=== PATIENT | female | born 1975 ===

== ENCOUNTER 2021-05-08 22:53 | Inpatient (IN) | payer SELFPAY ==
[2021-05-08 23:34] LABS: Bacteria,Urine 2+ /HPF (Negative); Bilirubin,Urine NEG (Negative); Blood,Urine MOD (Negative); Color,Urine Yellow (Yellow); Mucus,Urine FEW /HPF; Protein,Urine <15 mg/dL mg/dL (Negative); Urobilinogen,Urine < 2.0 mg/dL (<2.0)
[2021-05-08] MEDS ORDERED: FAMOTIDINE 20 MG/2 ML INJ IV ONE (23:48)
[2021-05-08] MEDS ORDERED: ONDANSETRON 4 MG/2 ML INJ IV ONE (23:48)
[2021-05-08] MEDS ORDERED: MORPHINE 4 MG/1 ML INJ IV ONE (23:48)
[2021-05-08 23:51] LABS: Basophils % (Auto) 0.2 % (0.0-1.8); Eosinophils % (Auto) 0.4 % (0.0-4.3); Hematocrit 38.4 % (30.3-42.9); Hemoglobin 12.4 gm/dl (10.1-14.3); Lymphocytes # (Auto) 0.9 K/mm3 (1.2-5.4); Lymphocytes % (Auto) 8.9 % (13.4-35.0); Mean Corpuscular HGB Conc 32 % (30-34); Mean Corpuscular Volume 85 fl (79-97); Monocytes # (Auto) 0.4 K/mm3 (0.0-0.8); Monocytes % (Auto) 4.1 % (0.0-7.3); Platelet Count 301 K/mm3 (140-440); Red Blood Count 4.51 M/mm3 (3.65-5.03); Red Cell Distribution Width 14.2 % (13.2-15.2)
[2021-05-09 00:10] LABS: Alanine Aminotransferase 16 units/L (7-56); Albumin 4.8 g/dL (3.9-5); Blood Urea Nitrogen 19 mg/dL (7-17); Calcium 9.5 mg/dL (8.4-10.2); Hemolysis Index 3
[2021-05-09 00:13] LABS: BUN/Creatinine Ratio 32
[2021-05-09] MEDS ORDERED: SODIUM CHLORIDE 0.9% 1000 ML 1,000 ML IV ONE (01:07)
[2021-05-09] MEDS ORDERED: HYDROmorphone 1 MG/1 ML INJ IV ONE (02:20)
[2021-05-09] MEDS ORDERED: PROCHLORPERAZINE EDISYLATE 10 MG/2 ML VIAL IV ONE (02:20)
--- NOTE | 2021-05-09 02:37 | Emergency Department Report ---
ED Abdominal Pain HPI - General Chief Complaint: Abdominal Pain Stated Complaint: ABD PAIN / VOMITING Source: patient, family Mode of arrival: Ambulatory Limitations: No Limitations - History of Present Illness Initial Comments: Per family, patient is a 46-year-old female with no past medical history presents to the ED with complaint of acute onset persistent diffuse a bdominal pain with intractable nausea and vomiting for the last 8 hours. Patient states that she has not been able to keep anything down especially in the last 6 hours. Patient states that the pain is constant and persistent and sharp, waxing and waning. Patient denies dizziness, syncope, fever, chills, cough, chest pain, shortness of breath, diarrhea, dysuria, urinary frequency and urgency, vaginal bleeding, vaginal discharge, flank pain or hematuria. MD Complaint: abdominal pain, other (Nausea and vomiting) -: Sudden, hour(s) (8) Location: diffuse, periumbilical, LLQ Radiation: none Migration to: no migration Severity: severe Severity scale (0 -10): 10 Quality: cramping, aching, sharp Consistency: constant Improves With: nothing Worsens With: vomiting Associated Symptoms: denies other symptoms, nausea, vomiting, anorexia. denies: diarrhea, fever, chills, constipation, dysuria, hematemesis, hematochezia, melena, hematuria, syncope - Related Data Allergies Allergy/AdvReac Type Severity Reaction Status Date / Time No Known Allergies Allergy Verified 05/08/21 23:01 ED Review of Systems ROS: Stated complaint: ABD PAIN / VOMITING Other details as noted in HPI Constitutional: denies: chills, fever Eyes: denies: eye pain, eye discharge, vision change ENT: denies: ear pain, throat pain Respiratory: denies: cough, shortness of breath, wheezing Cardiovascular: denies: chest pain, palpitations Endocrine: no symptoms reported Gastrointestinal: abdominal pain, nausea, vomiting. denies: diarrhea Genitourinary: denies: urgency, dysuria, discharge Musculoskeletal: denies: back pain, joint swelling, arthralgia Skin: denies: rash, lesions Neurological: denies: headache, weakness, paresthesias Psychiatric: denies: anxiety, depression Hematological/Lymphatic: denies: easy bleeding, easy bruising ED Physical Exam - General Limitations: No Limitations General appearance: alert, in no apparent distress - Head Head exam: Present: atraumatic, normocephalic, normal inspection - Eye Eye exam: Present: normal appearance, PERRL, EOMI Pupils: Present: normal accommodation - ENT ENT exam: Present: normal exam, normal orophraynx, mucous membranes moist, TM's normal bilaterally, normal external ear exam - Neck Neck exam: Present: normal inspection, full ROM. Absent: tenderness - Respiratory Respiratory exam: Present: normal lung sounds bilaterally. Absent: respiratory distress, wheezes, rhonchi, chest wall tenderness, accessory muscle use, decreased breath sounds - Cardiovascular Cardiovascular Exam: Present: regular rate, normal rhythm, normal heart sounds. Absent: systolic murmur, diastolic murmur, rubs, gallop - GI/Abdominal GI/Abdominal exam: Present: soft, tenderness (Palpable diffuse abdominal tenderness), normal bowel sounds. Absent: guarding, rebound, hyperactive bowel sounds, organomegaly, mass - Extremities Exam Extremities exam: Present: normal inspection, full ROM, normal capillary refill - Back Exam Back exam: Present: normal inspection, full ROM. Absent: tenderness, CVA t enderness (R), CVA tenderness (L), muscle spasm, paraspinal tenderness, vertebral tenderness - Neurological Exam Neurological exam: Present: alert, oriented X3, CN II-XII intact, normal gait, reflexes normal - Psychiatric Psychiatric exam: Present: normal affect, normal mood - Skin Skin exam: Present: warm, dry, intact, normal color. Absent: rash ED Course Vital Signs 05/08/21 22:57 Temperature 98.8 F Pulse Rate 96 H Respiratory 20 Rate Blood Pressure 130/95 O2 Sat by Pulse 99 Oximetry - Reevaluation(s) Reevaluation #1: 05/09/21 03:51 I paged and discussed patient case with the general surgeon on-call Dr. Alfred who advised an NG tube be inserted into the patient's nose for suctioning and that the hospitalist physician on-call admit the patient and she shall be a c onsult on the patient. I therefore paged Dr. Calero the hospitalist physician who admitted the patient to the hospital. ED Medical Decision Making - Lab Data Result diagrams: 05/08/21 23:12 05/08/21 23:12 - Radiology Data Radiology results: report reviewed, image reviewed [facility] [address] [place] [address] Cat Scan Report Signed Patient: EULALIA CASTRO MR# : [id number] : 1975 Acct:[id number] Age/Sex: 46 / F ADM Date: 05/08/21 Loc: ED Attending Dr: Ordering Physician: NEVILLE PEPPER Date of Service: 05/08/21 Procedure(s): CT abdomen pelvis w con Accession Number(s): [id number] cc: NEVILLE PEPPER CT ABDOMEN AND PELVIS WITH CONTRAST INDICATION / CLINICAL INFORMATION: Pt complains of epigastric abdominal pain with vomiting. TECHNIQUE: Axial CT images were obtained through the abdomen and pelvis after 100 cc Omnipaque [address] scans at this location are performed using CT dose reduction for ALARA by means of automated exposure control. COMPARISON: None available. FINDINGS: LOWER CHEST: No significant abnormality of the imaged chest. LIVER: No significant abnormality. GALLBLADDER: No significant abnormality. BILE DUCTS: No significant abnormality. SPLEEN: No significant abnormality. PANCREAS: No significant abnormality. ADRENALS: No significant abnormality. RIGHT KIDNEY / URETER: No significant abnormality. LEFT KIDNEY / URETER: No significant abnormality. STOMACH / DUODENUM / SMALL BOWEL: Small bowel distention is demonstrated to the level of the mid to distal ileum. Small collections of interloop fluid present. Bowel wall enhancement remains uniform. A transition point within the right lower abdomen is demonstrated image #1:30; series #2. No distinct obstructing lesion focal abnormality of the bowel lumen can be identified. COLON: Diverticulosis without acute inflammation. APPENDIX: No significant abnormality. PERITONEUM: Trace amount of free fluid is present within the dependent pelvis. LYMPH NODES: No significant adenopathy. AORTA / ARTERIES: No significant abnormality. IVC / VEINS: No significant abnormality. URINARY BLADDER: No significant abnormality. REPRODUCTIVE ORGANS: No significant abnormality. ADDITIONAL ABDOMINAL/PELVIC FINDINGS: None. SKELETAL SYSTEM: No significant abnormality. IMPRESSION: 1. Findings compatible small bowel obstruction transition point right lower abdomen as detailed. 2. Colonic diverticulosis without evidence of acute diverticulitis. Signer Name: Radha Gibson II, MD Signed: 05/09/2021 3:01 AM Workstation Name: [id number] Transcribed By: HOLLY Dictated By: RADHA GIBSON II, MD Electronically Authenticated By: RADHA GIBSON II, MD Signed Date/Time: 05/09/21300 DD/ 0258 TD/TT: - Medical Decision Making This is a 46-year-old female with no past medical history presents to the ED with complaint of acute onset persistent diffuse abdominal pain with intractable nausea and vomiting for the last 8 hours. Patient states that she has not been able to keep anything down especially in the last 6 hours. Patient states that the pain is constant and persistent and sharp, waxing and waning. In the ED, patient is alert and oriented x3 and is not in any distress but appears to be in significant pain, crying during the physical exam. Patient is also having persistent intermittent nausea and vomiting during the physical exam. Patient was treated for pain in the ED and was given antiemetics, normal saline 1 L IV bolus x1 and antacids. Lab test results were reviewed and are all nonactionable. The abdomen pelvis CT scan with contrast showed findings compatible small bowel obstruction transition point right lower abdomen as detailed. It also showed colonic diverticulosis without evidence of acute diverticulitis. Patient case was discussed with the general surgeon on-call Dr. Alfred who advised that the patient be admitted to the hospital by the hospitalist physician on-call and she shall consult on the patient upon admission. She also advised that an NG tube be placed on the patient to help decompress the abdomen. I therefore paged and discussed the patient case with the hospitalist physician on-call Dr. Calero who admitted the patient to the hospital. - Differential Diagnosis Appendicitis; SBO; diverticulitis; cholecystitis; pyelonephritis; UTI Critical care attestation.: If time is entered above; I have spent that time in minutes in the direct care of this critically ill patient, excluding procedure time. ED Disposition Clinical Impression: Abdominal pain in female patient, Nausea and vomiting in adult patient, Small bowel obstruction Disposition: 02 [facility]ORT TERM [facility]OS[facility] Is pt being admited?: No Does the pt Need Aspirin: No Condition: Stable Instructions: Nausea and Vomiting, Adult, [id number], Abdominal Pain, Adult, [id number], Abdominal Pain (ED), Bowel Obstruction, [id number] Referrals: PRIMARY CARE, [Primary Care Provider] - 3-5 Days Time of Disposition: 03:54 Print Language: NIGERIEN
--- NOTE | 2021-05-09 03:06 | Cat Scan Report ---
CT ABDOMEN AND PELVIS WITH CONTRAST INDICATION / CLINICAL INFORMATION: Pt complains of epigastric abdominal pain with vomiting. TECHNIQUE: Axial CT images were obtained through the abdomen and pelvis after 100 cc Omnipaque [address] scans at this location are performed using CT dose reduction for ALARA by means of automated exposure control. COMPARISON: None available. FINDINGS: LOWER CHEST: No significant abnormality of the imaged chest. LIVER: No significant abnormality. GALLBLADDER: No significant abnormality. BILE DUCTS: No significant abnormality. SPLEEN: No significant abnormality. PANCREAS: No significant abnormality. ADRENALS: No significant abnormality. RIGHT KIDNEY / URETER: No significant abnormality. LEFT KIDNEY / URETER: No significant abnormality. STOMACH / DUODENUM / SMALL BOWEL: Small bowel distention is demonstrated to the level of the mid to d istal ileum. Small collections of interloop fluid present. Bowel wall enhancement remains uniform. A transition point within the right lower abdomen is demonstrated image #1:30; series #2. No distinct o bstructing lesion focal abnormality of the bowel lumen can be identified. COLON: Diverticulosis without acute inflammation. APPENDIX: No significant abnormality. PERITONEUM: Trace amount of free fluid is present within the dependent pelvis. LYMPH NODES: No significant adenopathy. AORTA / ARTERIES: No significant abnormality. IVC / VEINS: No significant abnormality. URINARY BLADDER: No significant abnormality. REPRODUCTIVE ORGANS: No significant abnormality. ADDITIONAL ABDOMINAL/PELVIC FINDINGS: None. SKELETAL SYSTEM: No significant abnormality. IMPRESSION: 1. Findings compatible small bowel obstruction transition point right lower abdomen as detailed. 2. Colonic diverticulosis without evidence of acute diverticulitis. Signer Name: Lincoln Hubbard II, MD Signed: 05/09/2021 3:01 AM Workstation Name: [id number]
[2021-05-09] MEDS ORDERED: ONDANSETRON 4 MG/2 ML INJ IV PRN (03:56)
[2021-05-09] MEDS ORDERED: ACETAMINOPHEN 325 MG TAB PO PRN ×2 (03:56→04:58)
[2021-05-09] MEDS ORDERED: ALBUTEROL 2.5 MG/3 ML NEBU IH PRN (04:58)
[2021-05-09] MEDS ORDERED: HYDROmorphone 1 MG/1 ML INJ IV PRN ×2 (04:58→11:38)
--- NOTE | 2021-05-09 05:04 | History and Physical Report ---
History of Present Illness Date of examination: 05/09/21 Date of admission: 05/09/21 Chief complaint: Abdominal pain Nausea vomiting History of present illness: 46-year-old female with no past medical history presents to the ED with complaint of acute onset persistent diffuse abdominal pain with intractable nausea and vomiting for the last 8 hours. Patient states that she has not been able to keep anything down especially in the last 6 hours. Patient states that the pain is constant and persistent and sharp, waxing and waning. Patient denies dizziness, syncope, fever, chills, cough, chest pain, shortness of breath, diarrhea, dysuria, urinary frequency . In the emergency room CT scan of the abdomen shows small bowel obstruction transition point right lower abdomen as detailed. Colonic diverticulosis without evidence of acute diverticulitis. Subsequently Case was discussed with surgery's were going to admit the patient and put the patient on NG suction IV fluid surgery will see the patient in consultation Past History Past Surgical History: No surgical history Social history: no significant social history Family history: no significant family history Medications and Allergies Allergies Allergy/AdvReac Type Severity Reaction Status Date / Time No Known Allergies Allergy Verified 05/08/21 23:01 Active Meds: Active Medications Acetaminophen (Acetaminophen 325 Mg Tab) 650 mg PO Q4H PRN PRN Reason: Pain MILD(1-3)/Fever >100.5/DILLON Ondansetron HCl (Ondansetron 4 Mg/2 Ml Inj) 4 mg IV Q8H PRN PRN Reason: Nausea And Vomiting Sodium Chloride (Sodium Chloride 0.9% 10 Ml Flush Syringe) 10 ml IV BID ANNEMARIE Sodium Chloride (Sodium Chloride 0.9% 10 Ml Flush Syringe) 10 ml IV PRN PRN PRN Reason: LINE FLUSH Review of Systems All systems: negative Gastrointestinal: abdominal pain, nausea, vomiting Exam - Constitutional Vitals: Temp Pulse Resp BP Pulse Ox 98.8 F 96 H 20 130/95 99 05/08/21 22:57 05/08/21 22:57 05/08/21 22:57 05/08/21 22:57 05/08/21 22:57 General appearance: Present: no acute distress, well-nourished - EENT Eyes: Present: PERRL ENT: hearing intact, clear oral mucosa - Neck Neck: Present: supple, normal ROM - Respiratory Respiratory effort: normal Respiratory: bilateral: CTA - Cardiovascular Heart Sounds: Present: S1 & S2. Absent: rub, click - Extremities Extremities: pulses symmetrical, No edema Peripheral Pulses: within normal limits - Abdominal General gastrointestinal: Present: soft, non-tender, non-distended, normal bowel sounds Female genitourinary: Present: normal - Integumentary Integumentary: Present: clear, warm, dry - Musculoskeletal Musculoskeletal: gait normal, strength equal bilaterally - Psychiatric Psychiatric: appropriate mood/affect, intact judgment & insight - Neurologic Neurologic: CNII-XII intact, moves all extremities Results - Labs CBC & Chem 7: 05/08/21 23:12 05/08/21 23:12 Labs: Laboratory Last Values WBC 10.4 K/mm3 (4.5-11.0) 05/08/21 23:12 RBC 4.51 M/mm3 (3.65-5.03) 05/08/21 23:12 Hgb 12.4 gm/dl (10.1-14.3) 05/08/21 23:12 Hct 38.4 % (30.3-42.9) 05/08/21 23:12 MCV 85 fl (79-97) 05/08/21 23:12 MCH 28 pg (28-32) 05/08/21 23:12 MCHC 32 % (30-34) 05/08/21 23:12 RDW 14.2 % (13.2-15.2) 05/08/21 23:12 Plt Count 301 K/mm3 (140-440) 05/08/21 23:12 Lymph % (Auto) 8.9 % (13.4-35.0) L 05/08/21 23:12 Cass % (Auto) 4.1 % (0.0-7.3) 05/08/21 23:12 Eos % (Auto) 0.4 % (0.0-4.3) 05/08/21 23:12 Baso % (Auto) 0.2 % (0.0-1.8) 05/08/21 23:12 Lymph # (Auto) 0.9 K/mm3 (1.2-5.4) L 05/08/21 23:12 Cass # (Auto) 0.4 K/mm3 (0.0-0.8) 05/08/21 23:12 Eos # (Auto) 0.0 K/mm3 (0.0-0.4) 05/08/21 23:12 Baso # (Auto) 0.0 K/mm3 (0.0-0.1) 05/08/21 23:12 Seg Neutrophils % 86.4 % (40.0-70.0) H 05/08/21 23:12 Seg Neutrophils # 9.0 K/mm3 (1.8-7.7) H 05/08/21 23:12 Sodium 141 mmol/L (137-145) 05/08/21 23:12 Potassium 4.3 mmol/L (3.6-5.0) 05/08/21 23:12 Chloride 102.5 mmol/L (98-107) 05/08/21 23:12 Carbon Dioxide 24 mmol/L (22-30) 05/08/21 23:12 Anion Gap 19 mmol/L 05/08/21 23:12 BUN 19 mg/dL (7-17) H 05/08/21 23:12 Creatinine 0.6 mg/dL (0.6-1.2) 05/08/21 23:12 Estimated GFR > 60 ml/min 05/08/21 23:12 BUN/Creatinine Ratio 32 % 05/08/21 23:12 Glucose 134 mg/dL (65-100) H 05/08/21 23:12 Lactic Acid 1.00 mmol/L (0.7-2.0) 05/09/21 04:17 Calcium 9.5 mg/dL (8.4-10.2) 05/08/21 23:12 Total Bilirubin 0.30 mg/dL (0.1-1.2) 05/08/21 23:12 AST 17 units/L (5-40) 05/08/21 23:12 ALT 16 units/L (7-56) 05/08/21 23:12 Alkaline Phosphatase 147 units/L (35-129) H 05/08/21 23:12 Total Protein 7.9 g/dL (6.3-8.2) 05/08/21 23:12 Albumin 4.8 g/dL (3.9-5) 05/08/21 23:12 Albumin/Globulin Ratio 1.5 % 05/08/21 23:12 Lipase 18 units/L (13-60) 05/09/21 00:07 HCG, Qual Negative (Negative) 05/09/21 00:07 Urine Color Yellow (Yellow) 05/08/21 Unknown Urine Turbidity Clear (Clear) 05/08/21 Unknown Urine pH 5.0 (5.0-7.0) 05/08/21 Unknown Ur Specific [place] 1.010 (1.003-1.030) 05/08/21 Unknown Urine Protein <15 mg/dl mg/dL (Negative) 05/08/21 Unknown Urine Glucose (UA) Neg mg/dL (Negative) 05/08/21 Unknown Urine Ketones Neg mg/dL (Negative) 05/08/21 Unknown Urine Blood Mod (Negative) 05/08/21 Unknown Urine Nitrite Neg (Negative) 05/08/21 Unknown Urine Bilirubin Neg (Negative) 05/08/21 Unknown Urine Urobilinogen < 2.0 mg/dL (<2.0) 05/08/21 Unknown Ur Leukocyte Esterase Tr (Negative) 05/08/21 Unknown Urine WBC (Auto) 2.0 /HPF (0.0-6.0) 05/08/21 Unknown Urine RBC (Auto) 4.0 /HPF (0.0-6.0) 05/08/21 Unknown U Epithel Cells (Auto) 3.0 /HPF (0-13.0) 05/08/21 Unknown Urine Bacteria (Auto) 2+ /HPF (Negative) 05/08/21 Unknown Urine Mucus Few /HPF 05/08/21 Unknown - Imaging and Cardiology CT scan - abdomen: report reviewed Assessment and Plan VTE prophylaxis?: Chemical Plan of care discussed with patient/family: Yes - Patient Problems (1) Small bowel obstruction Current Visit: Yes Status: Acute Plan to address problem: Admit the patient to the medical floor. N.p.o. NG suction. D5 half-normal saline at the rate of 100 cc/h. Pepcid 20 mg IV every 12 hours. Zofran 4 mg IV every 6 hours as needed. Surgery evaluation (2) Abdominal pain in female patient Current Visit: Yes Status: Acute Plan to address problem: Morphine 2 mg IV every 4 hours as needed, Pepcid 20 mg IV every 12 hours. Zofran 4 mg every 6 hours as needed (3) Nausea and vomiting in adult patient Current Visit: Yes Status: Acute Plan to address problem: N.p.o. NG suction. D5 half-normal saline at the rate of 100 cc/h. Pepcid 20 mg IV every 12 hours. Zofran 4 mg IV every 6 hours as needed. Surgery evaluation (4) DVT prophylaxis Current Visit: Yes Status: Acute Plan to address problem: Heparin 5000 units subcu every 12 hours for DVT prophylaxis. Pepcid 20 mg IV every 12 hours for GI prophylaxis. Patient is a full code
[2021-05-09] MEDS ORDERED: IPRATROPIUM/ALBUTEROL SULFATE 3 ML AMPUL.NEB IH SCH (08:00)
[2021-05-09] MEDS: MORPHINE 2 MG/1 ML INJ IV PRN (08:04)
--- NOTE | 2021-05-09 09:55 | Consultation ---
History of Present Illness Consult date: 05/09/21 Reason for consult: abdominal pain - History of present illness History of present illness: General surgery consulted on a 46-year-old female who presented to the hospital with a 1 day history of acute abdominal pain. Patient was well prior to the pain starting. Pain is most severe in the central abdomen and it waxes and wanes. Patient has some nausea and vomiting, with last flatus and bowel movement yesterday. Patient is CT scan abdomen and pelvis that showed dilated bowel loops consistent with small bowel obstruction. Past History Past Medical History: No medical history Past Surgical History: No surgical history Social history: no significant social history Family history: no significant family history Medications and Allergies Allergies Allergy/AdvReac Type Severity Reaction Status Date / Time No Known Allergies Allergy Verified 05/08/21 23:01 Active Meds: Active Medications Acetaminophen (Acetaminophen 325 Mg Tab) 650 mg PO Q4H PRN PRN Reason: Pain MILD(1-3)/Fever >100.5/DILLON Albuterol (Albuterol 2.5 Mg/3 Ml Nebu) 2.5 mg IH Q3HRT PRN PRN Reason: Shortness Of Breath Albuterol/Ipratropium (Ipratropium/Albuterol Sulfate 3 Ml Ampul.Neb) 1 ampul IH BIDRT ANNEMARIE Famotidine (Famotidine 20 Mg/2 Ml Inj) 20 mg IV BID ANNEMARIE Heparin Sodium (Porcine) (Heparin 5,000 Unit/1 Ml Vial) 5,000 unit SUB-Q Q12HR ANNEMARIE Hydromorphone HCl (Hydromorphone 1 Mg/1 Ml Inj) 0.5 mg IV Q3H PRN PRN Reason: Pain , Severe (7-10) Dextrose/Sodium Chloride (D5/0.45ns) 1,000 mls @ 100 mls/hr IV DIRECT ANNEMARIE Morphine Sulfate (Morphine 2 Mg/1 Ml Inj) 2 mg IV Q4H PRN PRN Reason: Pain, Moderate (4-6) Last Admin: 05/09/21 08:04 Dose: 2 mg Ondansetron HCl (Ondansetron 4 Mg/2 Ml Inj) 4 mg IV Q8H PRN PRN Reason: Nausea And Vomiting Last Admin: 05/09/21 09:46 Dose: 4 mg Ondansetron HCl (Ondansetron 4 Mg/2 Ml Inj) 4 mg IV Q8H PRN PRN Reason: Nausea And Vomiting Sodium Chloride (Sodium Chloride 0.9% 10 Ml Flush Syringe) 10 ml IV BID ANNEMARIE Last Admin: 05/09/21 09:25 Dose: 10 ml Sodium Chloride (Sodium Chloride 0.9% 10 Ml Flush Syringe) 10 ml IV PRN PRN PRN Reason: LINE FLUSH Review of Systems All systems: negative - Gastrointestinal abdominal pain, nausea, vomiting Exam Vital Signs Temp Pulse Resp BP Pulse Ox 98.8 F 96 H 20 130/95 99 05/08/21 22:57 05/08/21 22:57 05/08/21 22:57 05/08/21 22:57 05/08/21 22:57 - General physical appearance Positive: well developed, no distress, moderate pain - Eyes Positive: PERRL. Negative: icteric - ENT Positive: no hearing loss - Respiratory Positive: normal expansion, normal respiratory effort - Cardiovascular Heart Sounds: Present: S1 & S2 - Extremities Extremities: no ischemia - Abdomen Abdomen: Present: soft, distended, other (tender to deep palpation). Absent: rebound, guarding Hernia: none - Neurologic Neurologic: alert and oriented to time, place and person - Psychiatric Psychiatric: appropriate mood/affect Results - Labs 05/08/21 23:12 05/08/21 23:12 Abnormal lab results 05/08/21 05/08/21 Range/Units 23:12 23:12 Lymph % (Auto) 8.9 L (13.4-35.0) % Lymph # (Auto) 0.9 L (1.2-5.4) K/mm3 Seg Neutrophils % 86.4 H (40.0-70.0) % Seg Neutrophils # 9.0 H (1.8-7.7) K/mm3 BUN 19 H (7-17) mg/dL Glucose 134 H (65-100) mg/dL Alkaline Phosphatase 147 H (35-129) units/L Diabetes panel 05/08/21 Range/Units 23:12 Sodium 141 (137-145) mmol/L Potassium 4.3 (3.6-5.0) mmol/L Chloride 102.5 (98-107) mmol/L Carbon Dioxide 24 (22-30) mmol/L BUN 19 H (7-17) mg/dL Creatinine 0.6 (0.6-1.2) mg/dL Glucose 134 H (65-100) mg/dL Calcium 9.5 (8.4-10.2) mg/dL AST 17 (5-40) units/L ALT 16 (7-56) units/L Alkaline Phosphatase 147 H (35-129) units/L Total Protein 7.9 (6.3-8.2) g/dL Albumin 4.8 (3.9-5) g/dL Calcium panel 05/08/21 Range/Units 23:12 Calcium 9.5 (8.4-10.2) mg/dL Albumin 4.8 (3.9-5) g/dL Pituitary panel 05/08/21 Range/Units 23:12 Sodium 141 (137-145) mmol/L Potassium 4.3 (3.6-5.0) mmol/L Chloride 102.5 (98-107) mmol/L Carbon Dioxide 24 (22-30) mmol/L BUN 19 H (7-17) mg/dL Creatinine 0.6 (0.6-1.2) mg/dL Glucose 134 H (65-100) mg/dL Calcium 9.5 (8.4-10.2) mg/dL Adrenal panel 05/08/21 Range/Units 23:12 Sodium 141 (137-145) mmol/L Potassium 4.3 (3.6-5.0) mmol/L Chloride 102.5 (98-107) mmol/L Carbon Dioxide 24 (22-30) mmol/L BUN 19 H (7-17) mg/dL Creatinine 0.6 (0.6-1.2) mg/dL Glucose 134 H (65-100) mg/dL Calcium 9.5 (8.4-10.2) mg/dL Total Bilirubin 0.30 (0.1-1.2) mg/dL AST 17 (5-40) units/L ALT 16 (7-56) units/L Alkaline Phosphatase 147 H (35-129) units/L Total Protein 7.9 (6.3-8.2) g/dL Albumin 4.8 (3.9-5) g/dL - Imaging CT scan - abdomen: report reviewed, image reviewed CT scan - pelvis: report reviewed, image reviewed Assessment and Plan 46-year-old female with small bowel obstruction of unknown clear etiology. Patient has no known past surgical history, and there are no clinical hernias or masses seen on her CT scan. Patient was evaluated with the help of child health associate. Patient signed informed consent and expressed understanding for diagnostic laparoscopy. Patient did have NG tube decompression and will schedule patient for later today.
--- NOTE | 2021-05-09 10:05 | XRay Report ---
ABDOMEN 1 VIEW(S) INDICATION / CLINICAL INFORMATION: NG tube placement. COMPARISON: None available. FINDINGS: TUBES / LINES: The distal tip and sidehole of the nasogastric tube terminates in the fundus of the st omach. BOWEL GAS PATTERN: Slightly prominent loops of small bowel in the upper abdomen are noted. FREE AIR / EXTRALUMINAL GAS: None seen. ADDITIONAL FINDINGS: No significant additional findings. IMPRESSION: The nasogastric tube terminates in the fundus of the stomach. Signer Name: Chencho Martin Jr, MD Signed: 05/09/2021 10:00 AM Workstation Name: [id number]
[2021-05-09] MEDS: HEPARIN 5,000 UNIT/1 ML VIAL SUB-Q SCH ×2 (10:25→21:47)
[2021-05-09] MEDS ORDERED: ceFAZolin/STERILE WATER 2 GM/20 ML SYRINGE IV NR (11:04)
[2021-05-09] MEDS ORDERED: metroNIDAZOLE/NS 500 MG/100 ML 500 MG/100 ML BAG IV NR (11:04)
--- NOTE | 2021-05-09 11:20 | Event Note ---
Date: 05/09/21 Patient seen and examined today. NG tube in place. Patient had episode of vomiting with NG tube. Chest x-ray reviewed and NG tube placed to suction. Patient evaluated by surgery, plans for exploratory laparoscopy later today.
[2021-05-09] MEDS: LACTATED RINGERS 1,000 ML IV SCH ×2 (11:35→18:28)
[2021-05-09] MEDS: FAMOTIDINE 20 MG/2 ML INJ IV SCH ×2 (11:45→21:46)
--- NOTE | 2021-05-09 11:49 | Anesthesia Consultation ---
Anesthesia Consult and Med Hx Date of service: 05/09/21 - Airway Anesthetic Teeth Evaluation: Good ROM Head & Neck: Adequate Mental/Hyoid Distance: Adequate Mallampati Class: Class III Intubation Access Assessment: Possibly Difficult - Pre-Operative Health Status ASA Pre-Surgery Classification: ASA2 Proposed Anesthetic Plan: General - Pulmonary Hx Smoking: No Hx Respiratory Symptoms: No - Cardiovascular System Hx Hypertension: No Hx Heart Attack/AMI: No - Central Nervous System CVA: No - Endocrine Hx Renal Disease: No Hx Liver Disease: No Hx Insulin Dependent Diabetes: No Hx Non-Insulin Dependent Diabetes: No Hx Thyroid Disease: No - Additional Comments Anesthesia Medical History Comments: No prior GA. Presented with abdominal pain, nausea, vomiting and found to have SBO. NGT currently in place. Patient is [employer]'s Witness and therefore refuses blood products.
--- NOTE | 2021-05-09 11:49 | Anesthesia Day of Surgery ---
Anesthesia Day of Surgery - Day of Surgery Patient Examined: Yes Patient H&P Reviewed: Yes Patient is NPO: Yes
[2021-05-09] MEDS ORDERED: HYDROmorphone 1 MG/1 ML INJ ONE (12:00)
[2021-05-09] MEDS ORDERED: SCOPOLAMINE TRANSDERMAL PATCH 72 HR TD NR (12:00)
[2021-05-09] MEDS ORDERED: LIDOCAINE MPF (2%) 20 MG/1 ML VIAL 5 ML ONE ×2 (12:00→14:25)
[2021-05-09] MEDS ORDERED: propofoL 200 MG/20 ML VIAL IV ONE (12:00)
[2021-05-09] MEDS ORDERED: MIDAZOLAM 2 MG/2 ML INJ IV NR (12:00)
[2021-05-09] MEDS ORDERED: ROCURONIUM 50 MG/5 ML INJ IV ONE ×2 (12:00→14:25)
[2021-05-09] MEDS ORDERED: SUCCINYLCHOLINE CHLORIDE 200 MG/10 ML INJ MDV ONE (12:01)
[2021-05-09] MEDS ORDERED: LIDOCAINE (1%) 10 MG/1 ML VIAL 20 ML MDV ONE (12:41)
[2021-05-09] MEDS ORDERED: BUPIVACAINE/PF (0.25%) 2.5 MG/ML 30 ML VIAL INFILTRATI ONE ×2 (12:41→13:30)
[2021-05-09] MEDS ORDERED: LIDOCAINE (1%) 10 MG/1 ML VIAL 20 ML MDV INFILTRATI ONE (13:30)
[2021-05-09] MEDS ORDERED: SODIUM CHLORIDE 0.9% IRRIG SOLN 2000 ML IR ONE (13:30)
[2021-05-09] MEDS ORDERED: SODIUM CHLORIDE 0.9% IRR 1,500 ML BOTTLE IR ONE (13:30)
[2021-05-09] MEDS ORDERED: dexAMETHasone 20 MG/5 ML VIAL ONE (14:21)
[2021-05-09] MEDS ORDERED: ONDANSETRON 4 MG/2 ML INJ ONE (14:22)
[2021-05-09] MEDS ORDERED: NEOSTIGMINE 10MG/10 ML INJ MDV ONE (15:16)
[2021-05-09] MEDS ORDERED: GLYCOPYRROLATE 0.4 MG/2 ML INJ ONE (15:16)
[2021-05-09] MEDS ORDERED: KETOROLAC 30 MG/1 ML INJ ONE (15:19)
[2021-05-09] MEDS ORDERED: LACTATED RINGERS 1,000 ML ONE (15:33)
--- NOTE | 2021-05-09 15:53 | Operative Report ---
Operative Report Operative Report: Date: May 09, 2021 Surgeon: Mark Alfred MD Tongue And Groove Machine Operator surgeon: Jagdish Reis CSA MD Procedure:1. Diagnostic laparoscopy, 2. Segmental small bowel resection with primary anastomosis Preop diagnosis: Small bowel obstruction Postop diagnosis: Small bowel obstruction Anesthesia:GETA Indication: Patient is a 46-year-old female who presented to the emergency room with a 1 day history of crampy abdominal pain with nausea and vomiting. Patient had a CT scan which showed a small bowel obstruction with no previous history of abdominal surgeries and no masses seen on imaging. Patient was consented for surgery. Details of procedure: Patient was brought to the OR suite laid in supine position. Bilateral lower extremity SCDs were placed. General anesthesia was induced via successful endotracheal tube intubation. A Valerio catheter inserted under sterile conditions and patient's arms were gently tucked at her side. Patient's abdomen prepped and draped in sterile fashion. After timeout was given as well as preoperative antibiotics a stab incision was placed in the left upper quadrant with a Veress needle to insufflate the abdomen to a pressure of 15 mmHg. After which using Optiview technique a 5 mm trocar was placed just superior and to the right of the umbilicus. Once inside the abdominal cavity there was noted to be no gross injury to any intra-abdominal structures. There was noted to be gross distention of the majority of her small bowel. For working trochars were placed under VAC visualization all 5 mm. 1 in the right upper quadrant right midabdomen left upper quadrant. Patient was placed in Trendelenburg and tilted towards her left side. The small bowel was run from the terminal ileum to the ligament of Treitz. There was noted to be no twisting or kinking however there was a transition point from normal caliber small bowel to dilated with signs of hyperemia where a small bowel diverticulum was appreciated. Feeling that this was likely a lead point for the bowel obstruction of decided to do a segmental small bowel resection. Due to the massive distention of the small bowel decided to make a 4 cm infraumbilical incision and placed a wound protector to exteriorize a segment of small bowel to do the resection to prevent gross spillage throughout her abdomen. Once the small bowel was exteriorized using a 2 GIAs a 5 to 6 cm segment of small bowel was resected to include the diverticulum. The mesentery was then transected using a LigaSure device. The 2 ends were configured to form a [id number] anastomosis which was stapled with a JACOBO closing the common enterotomy with a TA stapler. There was a silk antikinking stitch placed at the crotch as well as closure of the mesentery with silk as well. The anastomosis was inspected and found to be looking and it was grossly patent. Segment of small bowel was placed back in his maynor cavity the fascial defect was closed with a 0 PDS. The abdomen was insufflated and the abdomen was inspected one last time. The abdomen was then desufflated all trochars removed skin incisions were closed with 4 Monocryl followed by Dermabond. Local anesthesia using lidocaine with Marcaine mixture was used at all incision sites. Patient was awoken extubated and taken to recovery in stable condition. Complications: None immediate EBL: Less than 20 mL Specimen: Segment of small bowel
--- NOTE | 2021-05-09 16:47 | Post Anesthesia Evaluation ---
- Post Anesthesia Evaluation Patient Participated: Yes Airway Patent: Yes Stable Respiratory Function: Yes Nausea/Vomiting: No Temp > 96.8F: Yes Pain Manageable: Yes Adequeate Hydration: Yes Anesthesia Complications: No
[2021-05-09] MEDS: KETOROLAC 30 MG/1 ML INJ IV SCH (21:46)
[2021-05-09] MEDS: IPRATROPIUM/ALBUTEROL SULFATE 3 ML AMPUL.NEB IH SCH (21:59)
[2021-05-10] MEDS: D5W/0.45% NACL 1,000 ML IV SCH ×2 (05:46→17:04)
[2021-05-10] MEDS: KETOROLAC 30 MG/1 ML INJ IV SCH ×3 (05:46→21:22)
[2021-05-10 06:18] LABS: Basophils % (Auto) 0.3 % (0.0-1.8); Hematocrit 34.1 % (30.3-42.9); Hemoglobin 10.8 gm/dl (10.1-14.3); Lymphocytes # (Auto) 0.7 K/mm3 (1.2-5.4); Lymphocytes % (Auto) 19.2 % (13.4-35.0); Mean Corpuscular HGB Conc 32 % (30-34); Mean Corpuscular Volume 85 fl (79-97); Monocytes # (Auto) 0.5 K/mm3 (0.0-0.8); Monocytes % (Auto) 12.7 % (0.0-7.3); Platelet Count 244 K/mm3 (140-440); Red Blood Count 3.99 M/mm3 (3.65-5.03); Red Cell Distribution Width 14.3 % (13.2-15.2)
[2021-05-10 06:41] LABS: Blood Urea Nitrogen 19 mg/dL (7-17); Calcium 8.6 mg/dL (8.4-10.2); Hemolysis Index 1
[2021-05-10 06:47] LABS: BUN/Creatinine Ratio 48
[2021-05-10] MEDS: FAMOTIDINE 20 MG/2 ML INJ IV SCH ×2 (09:00→21:23)
[2021-05-10] MEDS: HEPARIN 5,000 UNIT/1 ML VIAL SUB-Q SCH ×2 (09:00→21:23)
[2021-05-10] MEDS: IPRATROPIUM/ALBUTEROL SULFATE 3 ML AMPUL.NEB IH SCH ×2 (10:03→20:07)
--- NOTE | 2021-05-10 10:41 | Progress Note ---
Assessment and Plan (1) Small bowel obstruction Current Visit: Yes Status: Acute Plan to address problem: -Pain fairly well controlled. Patient did not understand she can ask for medications. Now she is aware. Daughter has also explained. Admit the patient to the medical floor. N.p.o. NG suction. D5 half-normal saline at the rate of 100 cc/h. Pepcid 20 mg IV every 12 hours. Zofran 4 mg IV every 6 hours as needed. Surgery evaluation (2) Abdominal pain in female patient Current Visit: Yes Status: Acute Plan to address problem: Morphine 2 mg IV every 4 hours as needed, Pepcid 20 mg IV every 12 hours. Zofran 4 mg every 6 hours as needed (3) Nausea and vomiting in adult patient Current Visit: Yes Status: Acute Plan to address problem: N.p.o. NG suction. D5 half-normal saline at the rate of 100 cc/h. Pepcid 20 mg IV every 12 hours. Zofran 4 mg IV every 6 hours as needed. Surgery evaluation (4) DVT prophylaxis Current Visit: Yes Status: Acute Plan to address problem: Heparin 5000 units subcu every 12 hours for DVT prophylaxis. Pepcid 20 mg IV every 12 hours for GI prophylaxis. Patient is a full code Subjective Date of service: 05/10/21 Principal diagnosis: Small bowel obstruction Interval history: 46-year-old female originally presented to the ED with acute abdominal pain nausea vomiting found to have small bowel obstruction. Patient status post surgical intervention yesterday. 05/10/22 postop day 1 Patient doing well no new events overnight. I did speak with patient's daughter at the bedside all questions and concerns answered both in Kiswahili and [place]. Patient does have some mild incisional pain. Medicated well. Follow-up patient states pain is much better. Objective - Constitutional Vitals: Vital Signs - 12hr 05/10/21 05/10/21 05/10/21 03:44 05:46 06:16 Temperature 99.4 F Pulse Rate 93 H Pulse Rate [ Bilateral] Respiratory 16 20 18 Rate Respiratory Rate [Bilateral ] Blood Pressure 113/64 O2 Sat by Pulse 98 Oximetry 05/10/21 05/10/21 07:05 08:00 Temperature Pulse Rate Pulse Rate [ 86 Bilateral] Respiratory Rate Respiratory 19 Rate [Bilateral ] Blood Pressure O2 Sat by Pulse 100 Oximetry General appearance: Present: no acute distress, well-nourished - EENT Eyes: PERRL, EOM intact ENT: hearing intact, clear oral mucosa Ears: bilateral: normal - Neck Neck: supple, normal ROM - Respiratory Respiratory effort: normal Respiratory: bilateral: CTA - Breasts Breasts: normal - Cardiovascular Rhythm: regular Heart Sounds: Present: S1 & S2. Absent: gallop, rub Extremities: pulses intact, No edema, normal color, Full ROM - Gastrointestinal General gastrointestinal: Present: soft, tender, non-distended, hypoactive bowel sounds, other (Tenderness around surgical site.) - Genitourinary Female genitourinary: normal - Integumentary Integumentary: clear, warm, dry - Musculoskeletal Musculoskeletal: 1, strength equal bilaterally - Neurologic Neurologic: moves all extremities - Psychiatric Psychiatric: memory intact, appropriate mood/affect, intact judgment & insight - Labs CBC & Chem 7: 05/10/21 05:33 05/10/21 05:33 Labs: Abnormal lab results 05/10/21 05/10/21 Range/Units 05:33 05:33 WBC 3.7 L (4.5-11.0) K/mm3 MCH 27 L (28-32) pg [place] % (Auto) 12.7 H (0.0-7.3) % Lymph # (Auto) 0.7 L (1.2-5.4) K/mm3 Potassium 3.5 L (3.6-5.0) mmol/L Chloride 107.7 H (98-107) mmol/L BUN 19 H (7-17) mg/dL Creatinine 0.4 L (0.6-1.2) mg/dL Glucose 120 H (65-100) mg/dL
--- NOTE | 2021-05-10 11:37 | Progress Note ---
Assessment and Plan Postop day #1 s/p small bowel excision. Continue NG suction and IV fluids. Patient may have ice chips. Subjective Date of service: 05/10/21 Patient Reports: Positive: still having pain, no flatus, nausea Narrative: Covering for Dr. Alfred. Patient is postop day #1 s/p excision of distal ileum for a Meckel's diverticulum and management of a small bowel obstruction. She is noting some continued nausea this morning. NG tube is in place. Denies any flatus. Objective Vital Signs - 12hr 05/10/21 05/10/21 05/10/21 03:44 05:46 06:16 Temperature 99.4 F Pulse Rate 93 H Pulse Rate [ Bilateral] Respiratory 16 20 18 Rate Respiratory Rate [Bilateral ] Blood Pressure 113/64 O2 Sat by Pulse 98 Oximetry 05/10/21 05/10/21 07:05 08:00 Temperature Pulse Rate Pulse Rate [ 86 Bilateral] Respiratory Rate Respiratory 19 Rate [Bilateral ] Blood Pressure O2 Sat by Pulse 100 Oximetry - Labs 05/10/21 05:33 05/10/21 05:33 Diabetes panel 05/10/21 Range/Units 05:33 Sodium 142 (137-145) mmol/L Potassium 3.5 L (3.6-5.0) mmol/L Chloride 107.7 H (98-107) mmol/L Carbon Dioxide 24 (22-30) mmol/L BUN 19 H (7-17) mg/dL Creatinine 0.4 L (0.6-1.2) mg/dL Glucose 120 H (65-100) mg/dL Calcium 8.6 (8.4-10.2) mg/dL Calcium panel 05/10/21 Range/Units 05:33 Calcium 8.6 (8.4-10.2) mg/dL Pituitary panel 05/10/21 Range/Units 05:33 Sodium 142 (137-145) mmol/L Potassium 3.5 L (3.6-5.0) mmol/L Chloride 107.7 H (98-107) mmol/L Carbon Dioxide 24 (22-30) mmol/L BUN 19 H (7-17) mg/dL Creatinine 0.4 L (0.6-1.2) mg/dL Glucose 120 H (65-100) mg/dL Calcium 8.6 (8.4-10.2) mg/dL Adrenal panel 05/10/21 Range/Units 05:33 Sodium 142 (137-145) mmol/L Potassium 3.5 L (3.6-5.0) mmol/L Chloride 107.7 H (98-107) mmol/L Carbon Dioxide 24 (22-30) mmol/L BUN 19 H (7-17) mg/dL Creatinine 0.4 L (0.6-1.2) mg/dL Glucose 120 H (65-100) mg/dL Calcium 8.6 (8.4-10.2) mg/dL
[2021-05-10] MEDS: MORPHINE 2 MG/1 ML INJ IV PRN (12:00)
[2021-05-10] MEDS: ONDANSETRON 4 MG/2 ML INJ IV PRN (12:00)
[2021-05-11] MEDS: D5W/0.45% NACL 1,000 ML IV SCH ×2 (02:29→11:55)
[2021-05-11] MEDS: KETOROLAC 30 MG/1 ML INJ IV SCH ×3 (05:28→21:18)
--- NOTE | 2021-05-11 07:13 | Progress Note ---
Assessment and Plan Postop day #2 s/p small bowel excision. Continue NG suction and IV fluids. Patient may have ice chips. Patient without complaints of abdominal pain. She notes a small amount of flatus through the night. No BMs. We will clamp the NG tube this morning. If this is tolerated we will advance to clear liquids by this evening. Subjective Date of service: 05/11/21 Patient Reports: Positive: still having pain Narrative: Patient without complaints of abdominal pain. She notes a small amount of flatus through the night. No BMs. We will clamp the NG tube this morning. If this is tolerated we will advance to clear liquids by this evening. Objective Vital Signs - 12hr 05/10/21 05/10/21 05/10/21 20:07 20:30 22:28 Temperature 98.5 F Pulse Rate 98 H Pulse Rate [ 93 H Bilateral] Respiratory 18 18 Rate Respiratory 16 Rate [Bilateral ] Blood Pressure 115/72 O2 Sat by Pulse 100 98 Oximetry - Labs 05/11/21 07:19 05/11/21 07:19
[2021-05-11 07:52] LABS: Alanine Aminotransferase 11 units/L (7-56); Albumin 3.3 g/dL (3.9-5); Blood Urea Nitrogen 13 mg/dL (7-17); Calcium 8.4 mg/dL (8.4-10.2); Hemolysis Index 1
[2021-05-11 07:53] LABS: Basophils % (Auto) 0.2 % (0.0-1.8); Eosinophils % (Auto) 0.8 % (0.0-4.3); Hematocrit 33.6 % (30.3-42.9); Hemoglobin 10.7 gm/dl (10.1-14.3); Lymphocytes # (Auto) 0.8 K/mm3 (1.2-5.4); Lymphocytes % (Auto) 16.6 % (13.4-35.0); Mean Corpuscular HGB Conc 32 % (30-34); Mean Corpuscular Volume 85 fl (79-97); Monocytes # (Auto) 0.5 K/mm3 (0.0-0.8); Monocytes % (Auto) 9.5 % (0.0-7.3); Platelet Count 227 K/mm3 (140-440); Red Blood Count 3.94 M/mm3 (3.65-5.03); Red Cell Distribution Width 14.1 % (13.2-15.2)
[2021-05-11 08:30] LABS: BUN/Creatinine Ratio 43
[2021-05-11] MEDS: HEPARIN 5,000 UNIT/1 ML VIAL SUB-Q SCH ×2 (09:28→21:19)
[2021-05-11] MEDS: FAMOTIDINE 20 MG/2 ML INJ IV SCH ×2 (09:28→21:19)
[2021-05-11] MEDS: MORPHINE 2 MG/1 ML INJ IV PRN ×2 (09:39→19:20)
[2021-05-11] MEDS: IPRATROPIUM/ALBUTEROL SULFATE 3 ML AMPUL.NEB IH SCH ×2 (09:52→20:51)
--- NOTE | 2021-05-11 10:27 | Progress Note ---
Assessment and Plan (1) Small bowel obstruction Current Visit: Yes Status: Acute Plan to address problem: -Pain fairly well controlled. Patient did not understand she can ask for medications. Now she is aware. Daughter has also explained. Admit the patient to the medical floor. N.p.o. NG suction. D5 half-normal saline at the rate of 100 cc/h. Pepcid 20 mg IV every 12 hours. Zofran 4 mg IV every 6 hours as needed. Surgery evaluation (2) Abdominal pain in female patient Current Visit: Yes Status: Acute Plan to address problem: Morphine 2 mg IV every 4 hours as needed, Pepcid 20 mg IV every 12 hours. Zofran 4 mg every 6 hours as needed (3) Nausea and vomiting in adult patient Current Visit: Yes Status: Acute Plan to address problem: N.p.o. NG suction. D5 half-normal saline at the rate of 100 cc/h. Pepcid 20 mg IV every 12 hours. Zofran 4 mg IV every 6 hours as needed. Surgery evaluation (4) DVT prophylaxis Current Visit: Yes Status: Acute Plan to address problem: Heparin 5000 units subcu every 12 hours for DVT prophylaxis. Pepcid 20 mg IV every 12 hours for GI prophylaxis. Patient is a full code Subjective Date of service: 05/11/21 Principal diagnosis: Small bowel obstruction Interval history: 46-year-old female originally presented to the ED with acute abdominal pain nausea vomiting found to have small bowel obstruction. Patient status post surgical intervention yesterday. 05/10/21 postop day 1 Patient doing well no new events overnight. I did speak with patient's daughter at the bedside all questions and concerns answered both in Upper Sorbian and [place]ican. Patient does have some mild incisional pain. Medicated well. Follow-up patient states pain is minimal 05/11/2021 Post op day #2 Patient feels much better today. No pain no nausea. Patient states she has developed some gas no bowel movement. NG tube suction has been clamped. Patient tolerating ice chips at this time. No new events overnight. Objective - Constitutional Vitals: Vital Signs - 12hr 05/10/21 05/11/21 05/11/21 22:28 08:00 08:25 Temperature 98.5 F Pulse Rate 98 H Pulse Rate [ 69 Bilateral] Respiratory 18 Rate Respiratory 17 Rate [Bilateral ] Blood Pressure 115/72 O2 Sat by Pulse 98 98 Oximetry General appearance: Present: no acute distress, well-nourished - EENT Eyes: PERRL, EOM intact ENT: hearing intact, clear oral mucosa Ears: bilateral: normal - Neck Neck: supple, normal ROM - Respiratory Respiratory effort: normal Respiratory: bilateral: CTA - Breasts Breasts: normal - Cardiovascular Rhythm: regular Heart Sounds: Present: S1 & S2. Absent: gallop, rub Extremities: pulses intact, No edema, normal color, Full ROM - Gastrointestinal General gastrointestinal: Present: soft, non-tender, non-distended, normal bowel sounds - Genitourinary Female genitourinary: normal - Integumentary Integumentary: clear, warm, dry - Musculoskeletal Musculoskeletal: 1, strength equal bilaterally - Neurologic Neurologic: moves all extremities - Psychiatric Psychiatric: memory intact, appropriate mood/affect, intact judgment & insight - Labs CBC & Chem 7: 05/11/21 07:19 05/11/21 07:19 Labs: Abnormal lab results 05/11/21 05/11/21 Range/Units 07:19 07:19 MCH 27 L (28-32) pg [place] % (Auto) 9.5 H (0.0-7.3) % Lymph # (Auto) 0.8 L (1.2-5.4) K/mm3 Seg Neutrophils % 72.9 H (40.0-70.0) % Potassium 3.5 L (3.6-5.0) mmol/L Creatinine 0.3 L (0.6-1.2) mg/dL Glucose 121 H (65-100) mg/dL Total Protein 6.0 L D (6.3-8.2) g/dL Albumin 3.3 L (3.9-5) g/dL
[2021-05-11] MEDS: ACETAMINOPHEN 325 MG TAB PO PRN (11:46)
[2021-05-12] MEDS: D5W/0.45% NACL 1,000 ML IV SCH ×3 (00:07→22:27)
[2021-05-12] MEDS: KETOROLAC 30 MG/1 ML INJ IV SCH ×3 (05:02→21:56)
[2021-05-12] MEDS: IPRATROPIUM/ALBUTEROL SULFATE 3 ML AMPUL.NEB IH SCH ×2 (08:39→20:04)
[2021-05-12] MEDS: HEPARIN 5,000 UNIT/1 ML VIAL SUB-Q SCH ×2 (09:28→21:56)
[2021-05-12] MEDS: FAMOTIDINE 20 MG/2 ML INJ IV SCH ×2 (09:28→21:56)
--- NOTE | 2021-05-12 09:35 | Progress Note ---
Assessment and Plan (1) Small bowel obstruction Current Visit: Yes Status: Acute Plan to address problem: -Pain fairly well controlled. Patient did not understand she can ask for medications. Now she is aware. Daughter has also explained. Admit the patient to the medical floor. N.p.o. NG suction. D5 half-normal saline at the rate of 100 cc/h. Pepcid 20 mg IV every 12 hours. Zofran 4 mg IV every 6 hours as needed. Surgery evaluation (2) Abdominal pain in female patient Current Visit: Yes Status: Acute Plan to address problem: Morphine 2 mg IV every 4 hours as needed, Pepcid 20 mg IV every 12 hours. Zofran 4 mg every 6 hours as needed (3) Nausea and vomiting in adult patient Current Visit: Yes Status: Acute Plan to address problem: N.p.o. NG suction. D5 half-normal saline at the rate of 100 cc/h. Pepcid 20 mg IV every 12 hours. Zofran 4 mg IV every 6 hours as needed. Surgery evaluation (4) DVT prophylaxis Current Visit: Yes Status: Acute Plan to address problem: Heparin 5000 units subcu every 12 hours for DVT prophylaxis. Pepcid 20 mg IV every 12 hours for GI prophylaxis. Patient is a full code Subjective Date of service: 05/12/21 Principal diagnosis: Small bowel obstruction Interval history: 46-year-old female originally presented to the ED with acute abdominal pain nausea vomiting found to have small bowel obstruction. Patient status post surgical intervention yesterday. 05/10/21 postop day 1 Patient doing well no new events overnight. I did speak with patient's daughter at the bedside all questions and concerns answered both in Greek and Swazi. Patient does have some mild incisional pain. Medicated well. Follow-up patient states pain is minimal 05/11/2021 Post op day #2 Patient feels much better today. No pain no nausea. Patient states she has developed some gas no bowel movement. NG tube suction has been clamped. Patient tolerating ice chips at this time. No new events overnight. 05/12/2021 Patient feels better without pain. Passing gas. No bowel movement. Tolerated ice chips. Tolerated clears. Objective - Constitutional Vitals: Vital Signs - 12hr 05/12/21 05/12/21 05/12/21 04:33 08:42 08:43 Temperature 98.3 F Pulse Rate 71 Pulse Rate [ 77 Bilateral] Respiratory 18 Rate Respiratory 20 Rate [Bilateral ] Blood Pressure 112/54 O2 Sat by Pulse 98 96 Oximetry General appearance: Present: no acute distress, well-nourished - EENT Eyes: PERRL, EOM intact ENT: hearing intact, clear oral mucosa Ears: bilateral: normal - Neck Neck: supple, normal ROM - Respiratory Respiratory effort: normal Respiratory: bilateral: CTA - Breasts Breasts: normal - Cardiovascular Rhythm: regular Heart Sounds: Present: S1 & S2. Absent: gallop, rub Extremities: pulses intact, No edema, normal color, Full ROM - Gastrointestinal General gastrointestinal: Present: soft, non-tender, non-distended, normal bowel sounds - Genitourinary Female genitourinary: normal - Integumentary Integumentary: clear, warm, dry - Musculoskeletal Musculoskeletal: 1, strength equal bilaterally - Neurologic Neurologic: moves all extremities - Psychiatric Psychiatric: memory intact, appropriate mood/affect, intact judgment & insight - Labs CBC & Chem 7: 05/11/21 07:19 05/11/21 07:19
--- NOTE | 2021-05-12 12:19 | Progress Note ---
Assessment and Plan Postop day #3 status post diagnostic laparoscopy with segmental small bowel resection for small bowel obstruction thought to be due to Meckel's diverticulum. Patient is afebrile and stable tolerating clear liquids. NG tube was removed will start patient on full liquids. If patient tolerates full liquids patient can be discharge potentially tomorrow. Subjective Date of service: 05/12/21 Narrative: No acute events overnight. Patient tolerated NG tube clamped and clear liquids. She denies any nausea or vomiting. She says she is passing flatus. Objective Vital Signs - 12hr 05/12/21 05/12/21 05/12/21 04:33 08:42 08:43 Temperature 98.3 F Pulse Rate 71 Pulse Rate [ 77 Bilateral] Respiratory 18 Rate Respiratory 20 Rate [Bilateral ] Blood Pressure 112/54 O2 Sat by Pulse 98 96 Oximetry 05/12/21 10:00 Temperature Pulse Rate Pulse Rate [ Bilateral] Respiratory 20 Rate Respiratory Rate [Bilateral ] Blood Pressure O2 Sat by Pulse 97 Oximetry - General physical appearance well developed, no distress, no pain - Eyes PERRL - Respiratory normal expansion, normal respiratory effort - Abdomen soft, other (Incisions clean dry and intact, appropriate tender palpation) - Labs 05/11/21 07:19 05/11/21 07:19
[2021-05-12] MEDS: ONDANSETRON 4 MG/2 ML INJ IV PRN (14:18)
[2021-05-13] MEDS: KETOROLAC 30 MG/1 ML INJ IV SCH ×2 (05:46→14:19)
[2021-05-13] MEDS: IPRATROPIUM/ALBUTEROL SULFATE 3 ML AMPUL.NEB IH SCH (08:45)
[2021-05-13] MEDS: FAMOTIDINE 20 MG/2 ML INJ IV SCH (09:53)
[2021-05-13] MEDS: HEPARIN 5,000 UNIT/1 ML VIAL SUB-Q SCH (09:53)
--- NOTE | 2021-05-13 10:15 | Progress Note ---
Assessment and Plan POd#4 s/p dx lap with segmental small bowel resection due to mechanical SBO. Pt is doing well and afebrile and stable tolerating diet. Pt can be discharged home today and follow up in the office with me in two weeks. [phone] Pt can slowly advance diet as tolerated and shower. Subjective Date of service: 05/13/21 Narrative: Pt says that she feels well. Tolerated full liquids. Had flatus and 3 bowel movements. Pain is controlled. Objective Vital Signs - 12hr 05/12/21 05/13/21 05/13/21 23:24 04:13 08:45 Temperature 98.0 F Pulse Rate 69 Pulse Rate [ 70 Bilateral] Respiratory 17 18 Rate Respiratory 16 Rate [Abdomen] Respiratory 16 Rate [Bilateral ] Blood Pressure 111/66 O2 Sat by Pulse 100 97 Oximetry - General physical appearance well developed, no distress, no pain - Eyes PERRL - Respiratory normal expansion, normal respiratory effort - Abdomen soft, not tender, not guarding, other (incisions c/d/i) - Neurologic normal coordination, normal sensation - Labs 05/11/21 07:19 05/11/21 07:19
[2021-05-13 12:16] VITALS: BP 103/73
--- NOTE | 2021-05-13 12:26 | Discharge Summary ---
Providers - Providers Date of Admission: 05/09/21 04:58 Date of discharge: 05/13/21 Attending physician: SADIE HITCHCOCK 05/09/21 03:54 Consult to Physician [CONS] Stat Comment: NEVILLE Maurice spoke with Dr. Alfred @ [phone] Consulting Provider: GUILLERMO ALFRED Physician Instructions: NG tube placement; Hospitalist to admit Reason For Exam: SMALL BOWEL OBSTRUCTION Primary care physician: ELECTROMYOGRAPHIC TECHNICIAN Hospitalization Condition: Stable Hospital course: (1) Small bowel obstruction Current Visit: Yes Status: Acute Plan to address problem: -Pain fairly well controlled. Patient did not understand she can ask for medications. Now she is aware. Daughter has also explained. Admit the patient to the medical floor. N.p.o. NG suction. D5 half-normal saline at the rate of 100 cc/h. Pepcid 20 mg IV every 12 hours. Zofran 4 mg IV every 6 hours as needed. Surgery evaluation (2) Abdominal pain in female patient Current Visit: Yes Status: Acute Plan to address problem: Morphine 2 mg IV every 4 hours as needed, Pepcid 20 mg IV every 12 hours. Zofran 4 mg every 6 hours as needed (3) Nausea and vomiting in adult patient Current Visit: Yes Status: Acute Plan to address problem: N.p.o. NG suction. D5 half-normal saline at the rate of 100 cc/h. Pepcid 20 mg IV every 12 hours. Zofran 4 mg IV every 6 hours as needed. Surgery evaluation (4) DVT prophylaxis Current Visit: Yes Status: Acute Plan to address problem: Heparin 5000 units subcu every 12 hours for DVT prophylaxis. Pepcid 20 mg IV every 12 hours for GI prophylaxis. Patient is a full code Disposition: 01 HOME / SELF CARE / HOMELESS Final Discharge Diagnosis (Prints w/discharge instructions): Small bowel obstruction. Abdominal pain improved. Nausea vomiting resolved. Hypokalemia. Mild malnutrition/hypoalbuminemia Time spent for discharge: 35 min Core Measure Documentation - Palliative Care Palliative Care/ Comfort Measures: Not Applicable - Core Measures Any of the following diagnoses?: none Exam - Constitutional Vitals: Temp Pulse Resp BP Pulse Ox 98.6 F 75 18 103/73 98 05/13/21 11:12 05/13/21 11:12 05/13/21 11:12 05/13/21 11:12 05/13/21 11:12 General appearance: Present: no acute distress, well-nourished - EENT Eyes: Present: PERRL, EOM intact - Neck Neck: Present: supple, normal ROM - Respiratory Respiratory: bilateral: diminished, negative: rales, rhonchi, wheezing - Cardiovascular Rhythm: regular Heart Sounds: Present: S1 & S2 - Extremities Extremities: no ischemia, No edema - Abdominal General gastrointestinal: Present: soft, non-tender, non-distended, normal bowel sounds - Integumentary Integumentary: Present: clear, warm - Musculoskeletal Musculoskeletal: strength equal bilaterally, generalized weakness - Psychiatric Psychiatric: appropriate mood/affect, cooperative - Neurologic Neurologic: CNII-XII intact, moves all extremities Plan Activity: advance as tolerated Diet: advance as tolerated, other (Full liquid diet) Additional Instructions: Follow up in the office with [surgeon] in two weeks. [phone]. Pt can slowly advance diet as tolerated and shower. If you have worsening symptoms contact MD or go to the nearest emergency room as n eeded Follow up with: PRIMARY CARE, [Primary Care Provider] - 3-5 Days GUILLERMO ALFRED MD [Staff Physician] - 14 Days Prescriptions: Famotidine [Pepcid] 20 mg PO BID #30 tablet oxyCODONE /ACETAMINOPHEN [Percocet 5/325] 1 tab PO Q8H PRN #12 tablet PRN Reason: Pain
[2021-05-13] MEDS: ACETAMINOPHEN 325 MG TAB PO PRN (16:20)
[2021-05-13] MEDS ORDERED: FAMOTIDINE 20 MG TAB PO SCH (22:00)
== END 2021-05-13 16:40 | disposition home or self-care (01) | DRG 330 ==
LOC: ED 22:53 → 3A 05-09 04:58
PROVIDERS: ADMIT Hospitalist; ATTEND Internal Medicine
PROC: 0DJD4ZZ Inspection of Lower Intestinal Tract, Percutaneous Endoscopic Approach (ICD-10-PCS; principal; 2021-05-09)
PROC: 0DB80ZZ Excision of Small Intestine, Open Approach (ICD-10-PCS; 2021-05-09)
PROC: 0D9670Z Drainage of Stomach with Drainage Device, Via Natural or Artificial Opening (ICD-10-PCS; 2021-05-09)
DX: K56.609 Unspecified intestinal obstruction, unspecified as to partial versus complete obstruction (principal); E44.1 Mild protein-calorie malnutrition; Z68.26 Body mass index [BMI] 26.0-26.9, adult; E87.6 Hypokalemia
CPT/HCPCS: 36415; 74018; 74177; 80048; 80053; 81001; 82140; 83690; 84703; 85025; 86850; 86900; 86901; 88307; 94640; G0378; J1815; J3490; J7070; J7120; Q0162; J0330; J0780; J1100; J1170; J1644; J1885; J1956; J2250; J2270; J2405; J2704; J2710; J7030; Q9967